=== PATIENT | male | born 1985 | race Caucasian/White ===

== ENCOUNTER 2017-12-14 16:25 | Inpatient (IN) | payer OTHER ==
[2017-12-14 11:21] VITALS: BMI 22.7
[2017-12-14] MEDS ORDERED: Iodixanol 320 MG/ML 100 ML BOTTLE IV ONE (16:36)
[2017-12-14] MEDS ORDERED: Midazolam 2 MG/2 ML VIAL ONE (16:48)
[2017-12-14] MEDS ORDERED: DiphenhydrAMINE 50 mg/ml Inj ONE (16:49)
--- NOTE | 2017-12-14 17:30 | CP.PCM.PN ---
<Cecilia Chamberlain - Last Filed: 12/14/17 17:08> Subjective - Date & Time of Evaluation Date of Evaluation: 12/14/17 Time of Evaluation: 17:08 - Subjective Subjective: CODE HEART CC: chest pain HPI: History retrieved from as patient was immediately transferred to [facility] and underwent cardiac catherization. 32 year old male with PMHx of Pre- hypertension came to [place] ED for chest pain x 24 hours. As per , 2-3 weeks he was seen by PMD due to having intermittent chest pressure- EKG was done and read as normal. Patient was recently in [place] from 12/08-12/13/17. He started to have fever, chills, body ache on Sunday, worsening on Sunday. The patient's parents are both Physicians, so prior to their departure, they were given some medications including TamiFlu. Patient was brought to an ED in [place] sometime due to his symptoms and chest pain/ pressure. He was discharged with instructions to just take ibuprofen. He was found to be +flu, started giving the patient TamiFlu. Sunday morning they flew back and came to [place] ED due to continued chest pain/pressure. EKG, ECHO, LILLIAN was done showing ST Elevations in V1-V4 with twave inversions, LILLIAN + @ 24.7. Patient was given ASA, Brilanta, and started on Heparin drip and transferred to [facility] for Cardiac Cath. ROS unattainable as patient is in [place] [place], undergoing cardiac catherization. PMHx: Pre-hypertension - not on medication PSHx: Denied Meds: Currently on Tamiflu x 1 day - + flu as per All: NKDA SHx: Denied tobacco or illicit drug use, socially drinks alcohol FHx: Maternal grandparents: HTN, HLD --- Pending results of Cardiac Cath - Dr. Josep Chamberlain DO, PGY-1 <Alfred Gibson - Last Filed: 12/14/17 17:47> Attending/Attestation - Attestation I have personally seen and examined this patient.: Yes I have fully participated in the care of the patient.: Yes I have reviewed all pertinent clinical information, including history, physical exam and plan: Yes Notes (Text): Medical Hospitalist: Patient was a code heart transfer from [place] to [facility] He had already on heparin ggt on arrival. He had also He was immediately moved to the [facility] on arrival. Consent was acquired and he underwent cardiac catherization. Alfred Gibson
--- NOTE | 2017-12-14 18:12 | CP.PCM.CON ---
<Anselmo Mao - Last Filed: 12/14/17 18:32> History of Present Illness - History of Present Illness History of Present Illness: CCU Consult CC: chest pain HPI: History retrieved from as patient was immediately transferred to [facility] and underwent cardiac catherization. 32 year old male with PMHx of Pre- hypertension came to [place] ED for chest pain x 24 hours. As per , 2-3 weeks he was seen by PMD due to having intermittent chest pressure- EKG was done and read as normal. Patient was recently in [place] from 12/08-12/13/17. He started to have fever, chills, body ache on Sunday, worsening on Sunday. The patient's parents are both Physicians, so prior to their departure, they were given some medications including TamiFlu. Patient was brought to an ED in [place] sometime due to his symptoms and chest pain/ pressure. He was discharged with instructions to just take ibuprofen. He was found to be +flu, started giving the patient TamiFlu. Sunday morning they flew back and came to [place] ED due to continued chest pain/pressure. EKG, ECHO, LILLIAN was done showing ST Elevations in V1-V4 with twave inversions, LILLIAN + @ 24.7. Patient was given ASA, Brilanta, and started on Heparin drip and transferred to [facility] for Cardiac Cath. 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 PMHx: Pre-hypertension - not on medication PSHx: Denied Meds: Currently on Tamiflu x 1 day - + flu as per All: NKDA SHx: Denied tobacco or illicit drug use, socially drinks alcohol FHx: Maternal grandparents: HTN, HLD Review of Systems - Review of Systems Review of Systems: per hpi Past Patient History - Past Social History Smoking Status: Never Smoked - PSYCHIATRIC Hx Substance Use: No - SURGICAL HISTORY Hx Surgeries: No Meds Allergies/Adverse Reactions: Allergies Allergy/AdvReac Type Severity Reaction Status Date / Time No Known Allergies Allergy Verified 12/14/17 12:11 - Medications Medications: Current Medications Alprazolam (Xanax) 0.25 mg PO TID PRN PRN Reason: Anxiety Stop: 12/21/17 18:09 Aspirin (Aspirin Chewable) 81 mg PO DAILY [facility] Docusate Sodium (Colace) 100 mg PO TID [facility] Furosemide (Lasix) 40 mg PO BID [facility] Sodium Chloride (Sodium Chloride 0.9%) 1,000 mls @ 50 mls/hr IV .Q20H [facility] Lisinopril (Zestril) 20 mg PO DAILY [facility] Metoprolol Succinate (Toprol Xl) 25 mg PO DAILY [facility] Rosuvastatin Calcium (Crestor) 10 mg PO HS [facility] Ticagrelor (Brilinta) 60 mg PO BID [facility] Physical Exam - Constitutional Appears: Well, Non-toxic, No Acute Distress - Head Exam Head Exam: ATRAUMATIC, NORMAL INSPECTION, NORMOCEPHALIC - Eye Exam Eye Exam: EOMI Pupil Exam: NORMAL ACCOMODATION - ENT Exam ENT Exam: Mucous Membranes Moist - Respiratory Exam Respiratory Exam: Clear to Auscultation Bilateral, NORMAL BREATHING PATTERN - Cardiovascular Exam Cardiovascular Exam: REGULAR RHYTHM - GI/Abdominal Exam GI & Abdominal Exam: Normal Bowel Sounds, Soft. absent: Distended, Tenderness - Neurological Exam Neurological exam: Alert, Oriented x3 - Psychiatric Exam Psychiatric exam: Normal Affect, Normal Mood - Skin Skin Exam: Dry, Intact, Normal Color, Warm Assessment & Plan - Assessment and Plan (Free Text) Assessment: 32 s/p cardiac cath code heart Plan: Neuro: Xanax for anxiety Cards: S/p cardiac cath code heart, asa, brilinta, NS @ 50, lasix, metoprolol, lisinopril, crestor, colace, Dr. Car Cardio <Prachi Li M - Last Filed: 12/14/17 19:44> Meds - Medications Medications: Current Medications Alprazolam (Xanax) 0.5 mg PO TID PRN PRN Reason: Anxiety Stop: 12/21/17 18:09 Aspirin (Aspirin Chewable) 81 mg PO DAILY [facility] Docusate Sodium (Colace) 100 mg PO TID [facility] Furosemide (Lasix) 40 mg PO BID [facility] Sodium Chloride (Sodium Chloride 0.9%) 1,000 mls @ 50 mls/hr IV .Q20H [facility] Last Admin: 12/14/17 19:37 Dose: Not Given Metoprolol Succinate (Toprol Xl) 25 mg PO DAILY [facility] Rosuvastatin Calcium (Crestor) 10 mg PO HS [facility] Ticagrelor (Brilinta) 60 mg PO BID [facility] Assessment & Plan - Assessment and Plan (Free Text) Plan: Patient seen at bedside. Patient remains hemodynamicall stable. - Date & Time Date: 12/14/17 Time: 19:43
[2017-12-14] MEDS ORDERED: Sodium Chloride 0.9% 1,000 ML IV SCH (18:15)
--- NOTE | 2017-12-14 21:08 | CP.PCM.HP ---
Past Patient History - Past Medical History & Family History Past Medical History?: No - Past Social History Smoking Status: Never Smoked - MUSCULOSKELETAL/RHEUMATOLOGICAL Hx Falls: No - PSYCHIATRIC Hx Substance Use: No - SURGICAL HISTORY Hx Surgeries: No Meds Allergies/Adverse Reactions: Allergies Allergy/AdvReac Type Severity Reaction Status Date / Time No Known Allergies Allergy Verified 12/14/17 12:11 Results - Vital Signs Recent Vital Signs: Last Vital Signs Temp Pulse Resp BP 128/71 12/14/17 20:13 Pulse Ox
--- NOTE | 2017-12-14 21:54 | CP.PCM.HP ---
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 AFTER CODE 'HEART' PT HAS STENT IN LAD CURRENTLY IT APPEARS HE HAS NO RISK FACTOR Present on Admission - Present on Admission Any Indicators Present on Admission: No Review of Systems - Review of Systems All systems: reviewed and no additional remarkable complaints except (CHEST PAIN ) Past Patient History - Past Medical History & Family History Past Medical History?: No - Past Social History Smoking Status: Never Smoked - CARDIAC Hx Cardiac Disorders: No Hx Angina: No Hx Atrial Fibrillation: No Hx Heart Attack: No Hx Hypertension: No Hx Peripheral Edema: No - MUSCULOSKELETAL/RHEUMATOLOGICAL Hx Falls: No - PSYCHIATRIC Hx Substance Use: No - SURGICAL HISTORY Hx Surgeries: No Meds Allergies/Adverse Reactions: Allergies Allergy/AdvReac Type Severity Reaction Status Date / Time No Known Allergies Allergy Verified 12/14/17 12:11 Physical Exam - Head Exam Head Exam: ATRAUMATIC, NORMAL INSPECTION, NORMOCEPHALIC - Eye Exam Eye Exam: EOMI, Normal appearance, PERRL Pupil Exam: NORMAL ACCOMODATION, PERRL - ENT Exam ENT Exam: Mucous Membranes Moist, Normal Exam - Neck Exam Neck exam: Positive for: Normal Inspection - Respiratory Exam Respiratory Exam: Clear to Auscultation Bilateral, NORMAL BREATHING PATTERN - Cardiovascular Exam Cardiovascular Exam: REGULAR RHYTHM, +S1, +S2 - GI/Abdominal Exam GI & Abdominal Exam: Normal Bowel Sounds, Soft. absent: Tenderness - Rectal Exam Rectal Exam: Deferred - Extremities Exam Extremities exam: Positive for: normal inspection. Negative for: calf tenderness, pedal edema, tenderness - Back Exam Back exam: absent: CVA tenderness (L), CVA tenderness (R) - Neurological Exam Neurological exam: Alert, CN II-XII Intact, Oriented x3, Reflexes Normal - Skin Skin Exam: Dry, Intact, Normal Color, Warm Results - Vital Signs Recent Vital Signs: Last Vital Signs Temp 98.1 F 12/14/17 18:41 Pulse 62 12/14/17 20:40 Resp 21 12/14/17 20:40 BP 116/76 12/14/17 20:27 Pulse Ox 97 12/14/17 20:40 - Labs Labs: Laboratory Results - last 24 hr 12/14/17 20:59 Troponin I 26.9000 H* Assessment & Plan (1) ST elevation (STEMI) myocardial infarction involving left anterior descending coronary artery Status: Acute Comment: POST STEMI GUIDED THERAPY ON ODERS
[2017-12-15 04:52] LABS: BASO % 0.4 % (0.0-2.0); EOS % 0.6 % (0.0-4.0); HEMOGLOBIN 15.3 g/dL (12.0-18.0); LYMPH # 0.9 K/uL (1.0-4.3); LYMPH % 14.1 % (20.0-40.0); MEAN CELL VOLUME 89.7 fL (80.0-94.0); MEAN CORPUSCULAR HEMOGLOBIN 31.5 pg (27.0-31.0); MEAN CORPUSCULAR HGB CONC 35.1 g/dL (33.0-37.0); MEAN PLATELET VOLUME 9.8 fL (7.2-11.7); MONO # 0.6 K/uL (0.0-0.8); MONO % 9.5 % (0.0-10.0); NEUT # 4.8 K/uL (1.8-7.0); NEUT % 75.4 % (50.0-75.0); NRBC % 0.1 % (0.0-2.0); RBC 4.85 Mil/uL (4.40-5.90); RED CELL DISTRIBUTION WIDTH 12.1 % (11.5-14.5); WHITE BLOOD COUNT 6.3 K/uL (4.8-10.8)
[2017-12-15 05:04] LABS: ALB/GLOB RATIO 1.4 (1.0-2.1); ALBUMIN 4.3 g/dL (3.5-5.0); ALT/SGPT 69 U/L (21-72); AST/SGOT 156 U/L (17-59); BLOOD UREA NITROGEN 9 mg/dL (9-20); CALCIUM 9.4 mg/dl (8.6-10.4); GFR AFRICAN-AMERICAN > 60; GFR NON-AFRICAN AMERICAN > 60; HDL CHOLESTEROL 35 mg/dL (30-70); MAGNESIUM 1.9 mg/dL (1.6-2.3)
[2017-12-15 05:15] LABS: LDL CHOLESTEROL 63 mg/dL (0-129)
[2017-12-15] MEDS: Metoprolol Succinate 25 mg XL Tab PO SCH (10:20)
[2017-12-15] MEDS: Enoxaparin 30 mg Syringe SC SCH (10:22)
[2017-12-15 12:49] LABS: CK-MB 15.6 ng/mL (0.0-3.38)
[2017-12-15 13:18] LABS: TROPONIN I 16.7 ng/mL (0.00-0.120)
--- NOTE | 2017-12-15 14:21 | CP.PCM.PN ---
Subjective - Date & Time of Evaluation Date of Evaluation: 12/15/17 Time of Evaluation: 14:19 - Subjective Subjective: NO FURTHER CP TNI STILL POS STENT IN [place] LAD POST STEMI GUIDANCE BASED TREATMENT Objective - Vital Signs/Intake and Output Vital Signs (last 24 hours): Temp Pulse Resp BP Pulse Ox 97.7 F 75 18 126/82 98 12/15/17 12:00 12/15/17 13:45 12/15/17 13:45 12/15/17 13:45 12/15/17 13:45 Intake and Output: 12/15/17 12/15/17 11:59 23:59 Intake Total 560 360 Output Total 0 325 Balance 560 35 - Medications Medications: Current Medications Alprazolam (Xanax) 0.5 mg PO TID PRN PRN Reason: Anxiety Stop: 12/21/17 18:09 Last Admin: 12/14/17 20:13 Dose: 0.5 mg Aspirin (Aspirin Chewable) 81 mg PO DAILY [facility] Last Admin: 12/15/17 10:20 Dose: 81 mg Docusate Sodium (Colace) 100 mg PO TID [facility] Last Admin: 12/15/17 13:28 Dose: 100 mg Enoxaparin Sodium (Lovenox) 30 mg SC DAILY [facility] Last Admin: 12/15/17 10:22 Dose: 30 mg Metoprolol Succinate (Toprol Xl) 25 mg PO DAILY [facility] Last Admin: 12/15/17 10:20 Dose: 25 mg Rosuvastatin Calcium (Crestor) 10 mg PO HS [facility] Last Admin: 12/14/17 22:04 Dose: 10 mg Ticagrelor (Brilinta) 60 mg PO BID [facility] Last Admin: 12/15/17 10:21 Dose: 60 mg - Labs Labs: 12/15/17 04:49 12/15/17 04:49 Assessment and Plan (1) ST elevation (STEMI) myocardial infarction involving left anterior descending coronary artery Status: Acute
--- NOTE | 2017-12-15 15:08 | CATH ---
APPROVED REPORT HISTORY The patient is a 32 year-old male with a history of : no significant medical problemy who was tranfered from [facility] for Emergent Cardiac Catheterization with possible intervention.. INDICATION The indication(s) include : STEMI . Vessel Analysis The patient's coronary anatomy is right dominant. The left main coronary artery is a medium size vessel that courses in the normal fashion. The left main bifurcates to the left anterior descending and circumflex. The left anterior descending artery is a medium size vessel . There is a 90% stenosis in the proximal segment. The first diagonal branch is a medium size vessel appearing normal. The circumflex artery is a large size vessel . There is a 50-60% stenosis in the proximal segment. The right coronary artery is a medium size vessel appearing normal. Left Ventricle The left ventricle is Normal in size with reduced contractility. The left ventricular ejection fraction is estimated to be 40%. The left ventricular end diastolic pressure is 21 mmHg. There was no gradient across the aortic valve upon pullback. PCI Technique Lesion Anticoagulation was achieved with Heparin. Percutaneous coronary intervention was performed on the proximal left anterior descending artery segment. The lesion stenosis prior to intervention was 90% with DANA 2 flow. A XB LAD Guide Catheter was used to engage the L M ostium. A BMW Interventional Guidewire was used to cross the lesion. BALLOON DILATION A Balloon catheter 2.5X12 was inserted and inflated up to 8atm for 20seconds. STENT DEPLOYMENT A bare metal stent 3.0X12 was inserted and inflated up to 12atm for 30seconds. Final angiography reveals 0 % stenosis with DANA 3 flow. Conclusion Successful PTCA/Stent of the 90% proximal LAD. Non-obstructive disease of proxinmal LCX. Normal RCA Mild LV systolic function. Recommendations Aggressive Medical TherapyCardiac Risk Reduction Program Compliance with DAP[employer].
[2017-12-16 07:22] LABS: BASO % 0.3 % (0.0-2.0); EOS # 0.1 K/uL (0.0-0.7); EOS % 1.5 % (0.0-4.0); HEMOGLOBIN 14.1 g/dL (12.0-18.0); LYMPH # 1.2 K/uL (1.0-4.3); LYMPH % 24.7 % (20.0-40.0); MEAN CELL VOLUME 89.9 fL (80.0-94.0); MEAN CORPUSCULAR HEMOGLOBIN 31.9 pg (27.0-31.0); MEAN CORPUSCULAR HGB CONC 35.5 g/dL (33.0-37.0); MEAN PLATELET VOLUME 9.7 fL (7.2-11.7); MONO # 0.6 K/uL (0.0-0.8); NEUT # 3.1 K/uL (1.8-7.0); NEUT % 61.5 % (50.0-75.0); RBC 4.43 Mil/uL (4.40-5.90); RED CELL DISTRIBUTION WIDTH 11.6 % (11.5-14.5)
[2017-12-16 08:14] LABS: ALB/GLOB RATIO 1.2 (1.0-2.1); ALT/SGPT 44 U/L (21-72); AST/SGOT 70 U/L (17-59); BLOOD UREA NITROGEN 12 mg/dL (9-20); CALCIUM 8.7 mg/dl (8.6-10.4); GFR AFRICAN-AMERICAN > 60; GFR NON-AFRICAN AMERICAN > 60
[2017-12-16] MEDS: Enoxaparin 30 mg Syringe SC SCH (10:37)
[2017-12-16] MEDS: Metoprolol Succinate 25 mg XL Tab PO SCH (10:37)
[2017-12-16 19:54] VITALS: BP 118/63; PULSE 60; RESP 14; TEMP 98.5; O2SAT 100
--- NOTE | 2017-12-17 14:19 | CP.PCM.DIS ---
Provider - Provider Date of Admission: 12/14/17 17:47 Attending physician: Sandhya Kulkarni MD Time Spent in preparation of Discharge (in minutes): 35 Diagnosis - Discharge Diagnosis (1) ST elevation (STEMI) myocardial infarction involving left anterior descending coronary artery Status: Acute Hospital Course - Lab Results Lab Results: Micro Results 12/14/17 21:35 Nose MRSA Culture (Admit) - Final MRSA NOT DETECTED Most Recent Lab Values WBC 5.0 K/uL (4.8-10.8) 12/16/17 07:12 RBC 4.43 Mil/uL (4.40-5.90) 12/16/17 07:12 Hgb 14.1 g/dL (12.0-18.0) 12/16/17 07:12 Hct 39.8 % (35.0-51.0) 12/16/17 07:12 MCV 89.9 fL (80.0-94.0) 12/16/17 07:12 MCH 31.9 pg (27.0-31.0) H 12/16/17 07:12 MCHC 35.5 g/dL (33.0-37.0) 12/16/17 07:12 RDW 11.6 % (11.5-14.5) 12/16/17 07:12 Plt Count 180 K/uL (130-400) 12/16/17 07:12 MPV 9.7 fL (7.2-11.7) 12/16/17 07:12 Neut % (Auto) 61.5 % (50.0-75.0) 12/16/17 07:12 Lymph % (Auto) 24.7 % (20.0-40.0) 12/16/17 07:12 [place] % (Auto) 12.0 % (0.0-10.0) H 12/16/17 07:12 Eos % (Auto) 1.5 % (0.0-4.0) 12/16/17 07:12 Baso % (Auto) 0.3 % (0.0-2.0) 12/16/17 07:12 Neut # (Auto) 3.1 K/uL (1.8-7.0) 12/16/17 07:12 Lymph # (Auto) 1.2 K/uL (1.0-4.3) 12/16/17 07:12 [place] # (Auto) 0.6 K/uL (0.0-0.8) 12/16/17 07:12 Eos # (Auto) 0.1 K/uL (0.0-0.7) 12/16/17 07:12 Baso # (Auto) 0.0 K/uL (0.0-0.2) 12/16/17 07:12 Sodium 136 mmol/L (132-148) 12/16/17 07:12 Potassium 3.9 mmol/L (3.6-5.2) 12/16/17 07:12 Chloride 99 mmol/L (98-107) 12/16/17 07:12 Carbon Dioxide 26 mmol/L (22-30) 12/16/17 07:12 Anion Gap 15 (10-20) 12/16/17 07:12 BUN 12 mg/dL (9-20) 12/16/17 07:12 Creatinine 0.7 mg/dL (0.8-1.5) L 12/16/17 07:12 Est GFR ( Amer) > 60 12/16/17 07:12 Est GFR (Non-Af Amer) > 60 12/16/17 07:12 Random Glucose 91 mg/dL (75-110) 12/16/17 07:12 Calcium 8.7 mg/dl (8.6-10.4) 12/16/17 07:12 Phosphorus 4.3 mg/dL (2.5-4.5) 12/16/17 07:12 Magnesium 2.0 mg/dL (1.6-2.3) 12/16/17 07:12 Total Bilirubin 0.8 mg/dL (0.2-1.3) 12/16/17 07:12 AST 70 U/L (17-59) H D 12/16/17 07:12 ALT 44 U/L (21-72) 12/16/17 07:12 Alkaline Phosphatase 35 U/L (38-126) L D 12/16/17 07:12 Total Creatine Kinase 549 U/L (55-170) H 12/15/17 12:17 CK-MB (Mass) 15.6 ng/mL (0.0-3.38) H 12/15/17 12:17 Troponin I 16.7000 ng/mL (0.00-0.120) H* 12/15/17 12:17 Total Protein 7.2 g/dL (6.3-8.3) 12/16/17 07:12 Albumin 4.0 g/dL (3.5-5.0) 12/16/17 07:12 Globulin 3.2 gm/dL (2.2-3.9) 12/16/17 07:12 Albumin/Globulin Ratio 1.2 (1.0-2.1) 12/16/17 07:12 Triglycerides 136 mg/dL (0-149) 12/15/17 04:49 Cholesterol 126 mg/dL (0-199) 12/15/17 04:49 LDL Cholesterol Direct 63 mg/dL (0-129) 12/15/17 04:49 HDL Cholesterol 35 mg/dL (30-70) 12/15/17 04:49 - Hospital Course Hospital Course: 32 YEARS OLD PT WITH RECURRENT CP FOR FEW DAYS ON THE DOA DEVEPLOPED CRUSHING CP WITH ST SEGMENT ELEVATION . AFTER CODE 'HEART' PT HAS STENT IN LAD CURRENTLY IT APPEARS HE HAS NO RISK FACTOR POST STENT PT WAS STABLE HEMODYNAMICALLY , NO CP PT WAS D/C ON ASA+ ELAQUIS+ LOPRESSOR+VASOTEC PT HAS APPOINTMENT SUN,12/17/17 AT [facility] IN [place] Discharge Exam - Head Exam Head Exam: ATRAUMATIC, NORMAL INSPECTION, NORMOCEPHALIC Discharge Plan - Follow Up Plan Condition: GOOD Disposition: HOME/ ROUTINE Instructions: Myocardial Infarction (DC), Heart Healthy Diet (DC), Chronic Hypertension (DC), Coronary Intravascular Stent Placement (DC)
== END 2017-12-16 18:25 | disposition home or self-care (01) | DRG 249 ==
LOC: C.CATHLAB 16:25 → C.9I 17:47
PROVIDERS: ADMIT Internal Medicine Cardiovascular Disease; ATTEND Internal Medicine Cardiovascular Disease
PROC: 02703DZ Dilation of Coronary Artery, One Artery with Intraluminal Device, Percutaneous Approach (ICD-10-PCS; principal; 2017-12-14)
PROC: 4A023N8 Measurement of Cardiac Sampling and Pressure, Bilateral, Percutaneous Approach (ICD-10-PCS; 2017-12-14)
PROC: B211YZZ Fluoroscopy of Multiple Coronary Arteries using Other Contrast (ICD-10-PCS; 2017-12-14)
PROC: B216YZZ Fluoroscopy of Right and Left Heart using Other Contrast (ICD-10-PCS; 2017-12-14)
DX: I21.02 ST elevation (STEMI) myocardial infarction involving left anterior descending coronary artery (principal); F41.9 Anxiety disorder, unspecified; I10 Essential (primary) hypertension